=== PATIENT | female | born 1955 | race Caucasian/White ===

== ENCOUNTER 2019-07-24 12:07 | Emergency (ER) | payer BC ==
[~2019-07-24] VITALS: Ht 149.9 cm; Wt 98.0 kg
[2019-07-24 12:11] VITALS: Ht 149.9 cm; Wt 98.0 kg
[2019-07-24 13:10] LABS: BASOPHIL % 0.8 % (0-2); PLATELET COUNT 394 x10^3mcL (130-400); RED CELL DISTRIBUTION WIDTH 13.6 % (11.5-14.5)
[2019-07-24 13:18] LABS: CALCIUM 9.3 mg/dL (8.5-10.1); CARBON DIOXIDE 24.6 mmol/L (21-32); CHLORIDE SERUM 105 mmol/L (98-107); CREATININE SERUM 0.9 mg/dL (0.6-1.0); GFR1 > 60 mL/min; GLUCOSE SERUM 82 mg/dL (74-106); SODIUM SERUM 139 mmol/L (136-145)
[2019-07-24 13:20] LABS: ALKALINE PHOSPHATASE 113 U/L (46-116); ALT/SGPT 18 U/L (14-59); AST/SGOT 17 U/L (15-37); BILIRUBIN TOTAL 0.13 mg/dL (0.20-1.00)
[2019-07-24 13:22] LABS: TOTAL PROTEIN, SERUM 8.4 g/dL (6.4-8.2)
[2019-07-24 15:07] VITALS: BP 127/79
== END 2019-07-24 15:07 | disposition home or self-care (01) ==
LOC: ED 12:07
PROVIDERS: Emergency Medicine
DX: R06.00 Dyspnea, unspecified (principal)
CPT/HCPCS: 36415; 83880; Q0092

== ENCOUNTER 2020-08-20 13:14 | Emergency (ER) | payer OTHER ==
[~2020-08-20] VITALS: Ht 149.9 cm; Wt 97.2 kg
[2020-08-20 15:26] LABS: CALCIUM 9.3 mg/dL (8.5-10.1); CARBON DIOXIDE 24.7 mmol/L (21-32); POTASSIUM SERUM 4.1 mmol/L (3.5-5.1)
[2020-08-20 15:28] LABS: BASOPHIL % 0.3 % (0-2); PLATELET COUNT 369 x10^3mcL (130-400); RED CELL DISTRIBUTION WIDTH 13.9 % (11.5-14.5)
[2020-08-20 15:31] LABS: ALBUMIN 3.9 g/dL (3.4-5.0); BILIRUBIN TOTAL 0.3 mg/dL (0.20-1.00); TOTAL PROTEIN, SERUM 7.6 g/dL (6.4-8.2)
[2020-08-20 16:58] VITALS: BP 122/64
== END 2020-08-20 17:03 | disposition home or self-care (01) ==
LOC: ED 13:14
PROVIDERS: Emergency Medicine
DX: K59.00 Constipation, unspecified (principal); R07.89 Other chest pain; Z90.710 Acquired absence of both cervix and uterus; Z98.51 Tubal ligation status
CPT/HCPCS: 85378